=== PATIENT | female | born 1995 | race Caucasian/White ===

== ENCOUNTER 2018-02-21 11:11 | Observation (INO) | payer OTHER ==
[2018-02-21] MEDS ORDERED: MECLIZINE HCL 12.5 MG TAB ONE (11:53)
[2018-02-21 12:05] LABS: Absolute Lymphocytes (CBC) 1.8 K/uL (0.7-4.9); Absolute Monocytes 0.7 K/uL (0.1-1.3); Absolute Neutrophil 9.7 K/uL (1.8-8.0); Basophils % 0.2 % (0-1.3); Eosinophils % 0.2 % (0-4.4); Hematocrit 42.6 % (36.0-45.0); Lymphocytes % 14.6 % (15.3-44.8); MCH 30.4 pg (27.0-35.0); MCV 90.3 fL (80-100); MPV 8.9 fL (7.6-11.3); Monocytes % 5.6 % (3.3-12.3); RBC Red Blood Cell Count 4.72 M/uL (3.86-4.86)
[2018-02-21 12:30] LABS: ALT/SGPT 25 U/L (12-78); AST/SGOT 19 U/L (15-37); Alkaline Phosphatase 79 U/L (45-117); Amylase Level 49 U/L (25-115); BUN Blood Urea Nitrogen 9 mg/dL (7-18); Bicarbonate 27 mmol/L (21-32); Bilirubin Direct 0.1 mg/dL (0-0.2); Bilirubin Total 0.4 mg/dL (0.2-1.0); Glucose Level 87 mg/dL (74-106); Lipase 67 U/L (73-393); Potassium 3.8 mmol/L (3.5-5.1); Protein, Total 7.2 g/dL (6.4-8.2); Sodium Level 134 mmol/L (136-145)
[2018-02-21 13:15] LABS: Urine Bacteria >50 /HPF (<20); Urine Culture Reflex Order REFLEXED; Urine RBC <5 /HPF (NONE SEEN)
--- NOTE | 2018-02-21 14:07 | RAD REPORT ---
EXAM DESCRIPTION: CT - Head Brain Wo Cont - 02/21/2018 1:55 pm CLINICAL HISTORY: Dizziness COMPARISON: None. TECHNIQUE: Computed axial tomography of the head was obtained. IV contrast was not requested. All CT scans are performed using dose optimization technique as appropriate and may include automated exposure control or mA/KV adjustment according to patient size. FINDINGS: An intracranial bleed is not seen . The ventricles are normal in caliber. No extra-axial fluid collection is noted. Fluid within the sinuses/ mastoids is not seen. IMPRESSION: No acute intracranial abnormality is seen. If patient's symptoms persist MRI of the bra in would be recommended.
--- NOTE | 2018-02-21 14:16 | RAD REPORT ---
EXAM DESCRIPTION: CT - Abdomen Pelvis W Contrast - 02/21/2018 2:01 pm CLINICAL HISTORY: Abdominal pain/right lower quadrant pain with nausea COMPARISON: none. TECHNIQUE: Computed axial tomography of the abdomen pelvis was obtained. 100 cc Isovue-300 was admin istered intravenously. Oral contrast was not requested which limits evaluation of bowel. All CT scans are performed using dose optimization technique as appropriate and may include automated exposure control or mA/KV adjustment according to patient size. FINDINGS: The liver, spleen, pancreas, adrenal and kidneys appear unremarkable. There is no evidence of diverticulitis. A bi lobed mass is present within the left pelvis and mid pelvis anterior to the uterus. It contains fat, fluid and calcification. One lobe measures 5.5 centimeters. The other 4.5 centimeters. The appendix is inadequately evaluated IMPRESSION: Bilobed dermoid cyst within the pelvis. Inadequate evaluation of the appendix. If the patient has clinical symptoms to suggest appendicitis t hen a CT scan with oral contrast and opacification of the terminal ileum and cecum would be recommend ed
[2018-02-21 16:16] LABS: Urine Blood TRACE (NEG); Urine Glucose NEGATIVE (NEG); Urine Protein NEGATIVE (NEG); Urine Specific Gravity 1.015 (1.005-1.030)
[2018-02-21] MEDS ORDERED: MORPHINE 4 MG/ML SYR ONE (17:06)
[2018-02-21] MEDS ORDERED: ONDANSETRON 4 MG/2 ML VIAL ONE ×2 (17:06→20:39)
--- NOTE | 2018-02-21 18:20 | RAD REPORT ---
EXAM DESCRIPTION: CT - Abdomen Pelvis Wo Contrast - 02/21/2018 6:08 pm CLINICAL HISTORY: Abdominal pain. Right lower quadrant pain. COMPARISON: Abdomen Pelvis W Contrast dated 02/21/2018 TECHNIQUE: CT imaging of the abdomen and pelvis was performed without contrast. Solid organ and vasc ular assessment is limited due to lack of IV contrast. All CT scans are performed using dose optimization technique as appropriate and may include automated exposure control or mA/KV adjustment according to patient size. FINDINGS: The lower lung ramirez are clear. The liver, spleen, pancreas, adrenal glands and kidneys are within normal limits for a limited non-co ntrast examination. No bowel obstruction, free air, free fluid or abscess. The distal aspect of the appendix is thickene d, does not fill with oral contrast and is dilated to 12 mm. There is mild periappendiceal fat strand ing distally. This is compatible with early acute appendicitis. Evidence of bilateral ovarian dermoids again noted, unchanged since earlier study. IMPRESSION: Early acute appendicitis is suspected. A limited non-contrast examination was performed as detailed.
[2018-02-21] MEDS ORDERED: PIPER/TAZO/NS 3.375gm 3.375 GM/100 ML BAG ONE (18:37)
--- NOTE | 2018-02-21 18:37 | EDPHYS ---
Physician Documentation [facility] Name: Guerita Patel Age: 22 yrs Sex: Female : 1995 Arrival Date: 02/21/2018 Time: 11:16 Bed 15 Private MD: Mira Soto H ED Physician Kali Srivastava HPI: 02/21 11:46 This 22 yrs old Female presents to ER via Ambulatory with complaints of jmm Dizziness, Abdominal Pain. 11:46 The patient presents with dizziness. Onset: The symptoms/episode began/occurred jmm acutely, 1 day(s) ago. Modifying factors: The symptoms are alleviated by closing eyes, the symptoms are aggravated by nothing. Associated signs and symptoms: Pertinent positives: abdominal pain. This is a 89 year old female with no chronic medical conditions that presents to the ED with acute onset dizziness as she was laying in bed and shifting positions last night. Patient also complains of mild right lower abdominal pain. Patient states she has a history of ovarian cysts. Denies fever, denies diarrhea, denies vomiting. . 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 - Social history:: Smoking status: Patient/guardian denies using tobacco, Patient uses alcohol, but reports only rare drinking. - Ebola Screening: : No symptoms or risks identified at this time. ROS: 11:46 Constitutional: Negative for fever, chills, and weight loss, Cardiovascular: Negative jmm for chest pain, palpitations, and edema, Respiratory: Negative for shortness of breath, cough, wheezing, and pleuritic chest pain. 11:46 Back: Negative for injury and pain, : Negative for injury, bleeding, discharge, and swelling, MS/Extremity: Negative for injury and deformity, Skin: Negative for injury, rash, and discoloration. 11:46 Abdomen/GI: Positive for abdominal pain. 11:46 Neuro: Positive for dizziness. 11:46 All other systems are negative. Exam: 11:46 Constitutional: This is a well developed, well nourished patient who is awake, alert, jmm and in no acute distress. Head/Face: atraumatic. 11:46 Eyes: fatigable nystagmus noted, horizontal. 11:46 Neck: ROM/movement: is normal. 11:46 Chest/axilla: 11:46 Cardiovascular: Rate: normal, Rhythm: regular. 11:46 Respiratory: the patient does not display signs of respiratory distress, Respirations: normal, Breath sounds: are clear throughout. 11:46 Abdomen/GI: Inspection: abdomen appears normal, Bowel sounds: normal, Palpation: soft, mild abdominal tenderness, in the right lower quadrant, rebound tenderness, is not appreciated. 11:46 Back: ROM is normal. 11:46 Musculoskeletal/extremity: ROM: intact in all extremities. 11:46 Skin: Appearance: Color: normal in color. 11:46 Neuro: Orientation: is normal, Mentation: is normal, Memory: is normal, Cerebellar function: normal finger to nose testing. 11:46 Psych: Behavior/mood is pleasant, cooperative. Vital Signs: 11:29 BP 146 / 101; Pulse 99; Resp 18; Temp 97.5; Pulse Ox 97% ; Weight 83.91 kg; Height 5 sv ft. 5 in. (165.10 cm); Pain 2/10; 12:25 BP 116 / 74; Pulse 82; Resp 16; Pulse Ox 98% on R/A; em 14:30 BP 124 / 86; Pulse 88; Resp 16; Pulse Ox 97% on R/A; Pain 3/10; em 16:11 BP 135 / 91; Pulse 82; Resp 18; Pulse Ox 99% on R/A; em 16:57 BP 127 / 84; Pulse 87; Resp 16; Pulse Ox 98% on R/A; mh5 18:00 BP 134 / 82; Pulse 84; Resp 18; Pulse Ox 99% on R/A; Pain 0/10; em 18:50 BP 121 / 78; Pulse 81; Resp 16; Pulse Ox 97% on R/A; em 11:29 Body Mass Index 30.79 (83.91 kg, 165.10 cm) sv MDM: 11:44 Patient medically screened. [facility] 16:08 Data reviewed: vital signs, nurses notes, radiologic studies, ultrasound. bashir 18:17 Transition of care: After a detail discussion of the patient's case, care is [facility] transferred to Genaro MARTÍNEZ 02/21 11:46 Order name: Amylase, Serum; Complete Time: 12:49 [facility] 02/21 11:46 Order name: Basic Metabolic Panel; Complete Time: 12:49 [facility] 02/21 11:46 Order name: CBC with Diff; Complete Time: 12:25 [facility] 02/21 11:46 Order name: Creatinine for Radiology; Complete Time: 12:49 [facility] 02/21 11:46 Order name: Hepatic Function; Complete Time: 12:49 [facility] 02/21 11:46 Order name: Lipase; Complete Time: 12:49 [facility] 02/21 11:46 Order name: Urine Microscopic Only; Complete Time: 13:30 [facility] 02/21 13:08 Order name: Urine Dipstick--Ancillary (enter results); Complete Time: 16:31 02/21 13:08 Order name: Urine --Ancillary (enter results); Complete Time: 16:31 02/21 13:17 Order name: Urine Culture EDMS 02/21 13:30 Order name: CT Head Brain wo Cont; Complete Time: 14:15 [facility] 02/21 13:30 Order name: CT Abd/Pelvis - W/Contrast; Complete Time: 14:25 [facility] 02/21 11:46 Order name: IV Saline Lock; Complete Time: 12:17 [facility] 02/21 11:46 Order name: Labs collected and sent; Complete Time: 12:17 [facility] 02/21 11:46 Order name: Urine Dipstick-Ancillary (obtain specimen); Complete Time: 12:17 [facility] 02/21 18:06 Order name: Abdomen ; Complete Time: 18:26 EDMS Administered Medications: 11:55 Drug: Meclizine 50 mg Route: PO; iw 14:00 Follow up: Response: No adverse reaction; Marked relief of symptoms em 17:15 Drug: morphine 4 mg Route: IVP; Site: right antecubital; iw 17:37 Follow up: Response: No adverse reaction; Pain is decreased em 17:15 Drug: Zofran 4 mg Route: IVP; Site: right antecubital; iw 17:37 Follow up: Response: No adverse reaction em 18:50 Drug: Zosyn 3.375 grams Route: IVPB; Infused Over: 60 mins; Site: right antecubital; em 19:11 Follow up: Response: No adverse reaction; IV Status: Infusion continued upon admission em Disposition: 02/21/18 18:37 Hospitalization ordered by Marcos Kay for Observation. Preliminary diagnosis is Acute appendicitis. - Bed requested for Operating Room. - Status is Observation. em - Condition is Stable. - Problem is new. - Symptoms have improved. UTI on Admission? No Addendum: 02/24/2018 19:40 Co-signature as Attending Physician, Kali Srivastava MD. r n Signatures: Dispatcher [employer] EDPat Bethea, RN RN Gabriel Little PA PA jmm Munoz, Edgar, TUBE CLOSING MACHINE OPERATOR TUBE CLOSING MACHINE OPERATOR em Florina Barrientos, Kali Orzoco RN, MD MD rn Page, Corey, PA PA cp Corrections: (The following items were deleted from the chart) 02/21 15:40 15:37 Abdomen Pelvis W Con+CT.RAD.BRZ ordered. EDMS EDMS 15:42 15:40 Abdomen Wo Contrast ordered. EDMS EDMS 15:46 15:33 Abdomen W/ Con+CT.RAD.BRZ ordered. EDMS EDMS 18:06 15:42 Pelvis Wo Cont ordered. EDMS EDMS 19:11 18:37 Hospitalization Ordered by Marcos Kay MD for Observation. Preliminary diagnosis em is Acute appendicitis. Bed requested for Operating Room. Status is Observation. Condition is Stable. Problem is new. Symptoms have improved. UTI on Admission? No. cp
--- NOTE | 2018-02-21 18:37 | ER ---
Nurse's Notes [facility] Name: Guerita Patel Age: 22 yrs Sex: Female : 1995 Arrival Date: 02/21/2018 Time: 11:16 Bed 15 Private MD: Mira Soto H Diagnosis: Acute appendicitis Presentation: 02/21 11:22 Presenting complaint: Patient states: abd pain that started in the unbilical area and sv has moved to the RLQ, dizziness, diaphoresis, nausea x 1 day. Transition of care: patient was not received from another setting of care. Onset of symptoms was February 20, 2018. Risk Assessment: Do you want to hurt yourself or someone else? Patient reports no desire to harm self or others. Care prior to arrival: None. 11:22 Method Of Arrival: Ambulatory sv 11:22 Acuity: WILLIE 3 sv 12:25 Initial Sepsis Screen: Does the patient meet any 2 criteria? No. Patient's initial em sepsis screen is negative. Does the patient have a suspected source of infection? No. Patient's initial sepsis screen is negative. 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 - Social history:: Smoking status: Patient/guardian denies using tobacco, Patient uses alcohol, but reports only rare drinking. - Ebola Screening: : No symptoms or risks identified at this time. Screenin:26 Abuse screen: Denies threats or abuse. Nutritional screening: No deficits noted. em Tuberculosis screening: No symptoms or risk factors identified. Fall Risk None identified. Assessment: 11:48 General: Appears in no apparent distress. comfortable, Behavior is calm, cooperative. em Pain: Complains of pain in right lower quadrant. Neuro: Level of Consciousness is awake, alert, obeys commands, Oriented to person, place, time, situation. Neuro: Reports dizziness, Denies headache photophobia. Cardiovascular: Capillary refill < 3 seconds Patient's skin is warm and dry. Respiratory: Airway is patent Respiratory effort is even, unlabored, Respiratory pattern is regular, symmetrical. GI: Abdomen is flat, Bowel sounds present X 4 quads. Abd is soft X 4 quads Abdomen is tender to palpation in right lower quadrant. : Urine is cloudy. EENT: No signs and/or symptoms were reported regarding the EENT system. Derm: Skin is intact, Skin is pink, warm \T\ dry. Musculoskeletal: Range of motion: intact in all extremities. 12:00 Reassessment: Patient appears in no apparent distress at this time. I agree with above iw assessment by Solomon Trevino LVN. 12:40 Reassessment: Patient appears in no apparent distress at this time. Patient and/or em family updated on plan of care and expected duration. Pain level reassessed. Patient is alert, oriented x 3, equal unlabored respirations, skin warm/dry/pink. Patient states feeling better. 13:49 Reassessment: Patient appears in no apparent distress at this time. Patient and/or em family updated on plan of care and expected duration. Pain level reassessed. Patient is alert, oriented x 3, equal unlabored respirations, skin warm/dry/pink. dizziness has resolved, pain still in right lower quadrant Patient states symptoms have improved. 15:40 Reassessment: Patient and/or family updated on plan of care and expected duration. Pain em level reassessed. family at bedside, finished drinking PO contrast. 16:11 Reassessment: Patient appears in no apparent distress at this time. Patient and/or em family updated on plan of care and expected duration. Pain level reassessed. Patient is alert, oriented x 3, equal unlabored respirations, skin warm/dry/pink. awaiting for CT Patient states feeling better. 17:00 Reassessment: pt request pain medicine, CHRISTIE Rios notified, new orders received. em 17:38 Reassessment: Patient appears in no apparent distress at this time. Patient and/or em family updated on plan of care and expected duration. Pain level reassessed. Patient is alert, oriented x 3, equal unlabored respirations, skin warm/dry/pink. Patient denies pain at this time. 18:30 Reassessment: Patient appears in no apparent distress at this time. Patient and/or em family updated on plan of care and expected duration. Pain level reassessed. Patient is alert, oriented x 3, equal unlabored respirations, skin warm/dry/pink. pt will go to OR for procedure. Vital Signs: 11:29 BP 146 / 101; Pulse 99; Resp 18; Temp 97.5; Pulse Ox 97% ; Weight 83.91 kg; Height 5 sv ft. 5 in. (165.10 cm); Pain 2/10; 12:25 BP 116 / 74; Pulse 82; Resp 16; Pulse Ox 98% on R/A; em 14:30 BP 124 / 86; Pulse 88; Resp 16; Pulse Ox 97% on R/A; Pain 3/10; em 16:11 BP 135 / 91; Pulse 82; Resp 18; Pulse Ox 99% on R/A; em 16:57 BP 127 / 84; Pulse 87; Resp 16; Pulse Ox 98% on R/A; mh5 18:00 BP 134 / 82; Pulse 84; Resp 18; Pulse Ox 99% on R/A; Pain 0/10; em 18:50 BP 121 / 78; Pulse 81; Resp 16; Pulse Ox 97% on R/A; em 11:29 Body Mass Index 30.79 (83.91 kg, 165.10 cm) sv ED Course: 11:16 Patient arrived in ED. mr 11:16 Mira Soto DO is Private Physician. mr 11:22 Gabriel Foster [facility] is [facility]. m 11:22 Kali Srivastava MD is Attending Physician. [facility] 11:28 Triage completed. sv 11:29 Arm band placed on right wrist. Patient placed in an exam room, on pulse oximetry. sv 11:47 Solomon Trevino LVN is Primary Nurse. em 11:54 Initial lab(s) drawn, by ok, sent to lab. Inserted saline lock: 20 gauge in right iw antecubital area, using aseptic technique. Blood collected. 12:25 Patient has correct armband on for positive identification. Bed in low position. Call em light in reach. Side rails up X2. 12:26 No provider procedures requiring assistance completed. em 13:55 CT Head Brain wo Cont In Process Unspecified. EDMS 14:00 CT Abd/Pelvis - W/Contrast In Process Unspecified. EDMS 14:04 CT completed. Patient tolerated procedure well. Patient moved to CT. Patient moved back il from CT. 18:09 Abdomen In Process Unspecified. EDMS 18:12 PHCP role handed off by Gabriel Foster PA cp 18:12 Genaro Sherman PA is PHCP. cp 18:36 Marcos Kay MD is Hospitalizing Provider. cp 19:09 Patient admitted, IV remains in place. em Administered Medications: 11:55 Drug: Meclizine 50 mg Route: PO; iw 14:00 Follow up: Response: No adverse reaction; Marked relief of symptoms em 17:15 Drug: morphine 4 mg Route: IVP; Site: right antecubital; iw 17:37 Follow up: Response: No adverse reaction; Pain is decreased em 17:15 Drug: Zofran 4 mg Route: IVP; Site: right antecubital; iw 17:37 Follow up: Response: No adverse reaction em 18:50 Drug: Zosyn 3.375 grams Route: IVPB; Infused Over: 60 mins; Site: right antecubital; em 19:11 Follow up: Response: No adverse reaction; IV Status: Infusion continued upon admission em Outcome: 18:37 Decision to Hospitalize by Provider. cp 19:09 Admitted to OR accompanied by nurse, via stretcher, with chart. em 19:09 Condition: good 19:09 Instructed on the need for admit, Demonstrated understanding of instructions. 19:11 Patient left the ED. em Signatures: Dispatcher [employer] Pat Bauer, RN JAMES Gabriel Foster PA PA jmm Rivera, Maria mr Trevino, Solomon, SOMMELIER SOMMELIER em Florina Barrientos RN RN iw Page, Corey, PA PA cp Jordan, Nathan nj Martinez, Maria [facility]
[2018-02-21] MEDS ORDERED: BUPIVACA 0.25%/EPI 0.0005%/PF 30 ML VIAL ONE (19:15)
[2018-02-21] MEDS ORDERED: Ringers Lactate 1,000 ML IV ONE (19:15)
[2018-02-21] MEDS ORDERED: LIDOCAINE 2% MPF 5 ML VIAL ONE (19:34)
[2018-02-21] MEDS ORDERED: FENTANYL CITR 100 MCG/2 ML ONE (19:34)
[2018-02-21] MEDS ORDERED: PROPOFOL 200 MG/20 ML VIAL IV ONE (19:34)
[2018-02-21] MEDS ORDERED: ROCURONIUM 50 MG/5 ML VIAL IV ONE (19:34)
[2018-02-21] MEDS ORDERED: LANO/MINERAL OIL/PETRO 3.5 GM ONE (19:52)
[2018-02-21] MEDS ORDERED: DEXAMETHASONE 10 MG/ML VIAL ONE (19:59)
[2018-02-21] MEDS ORDERED: KETOROLAC 30 MG/ML INJ ONE (19:59)
[2018-02-21] MEDS ORDERED: ONDANSETRON HCL 40 MG/20 ML VIAL ONE (19:59)
[2018-02-21] MEDS ORDERED: NEOSTIGMINE 1 MG/ML -5 ML SYRINGE ONE (20:05)
[2018-02-21] MEDS ORDERED: GLYCOPYRROLATE 0.2 MG/ML SYR ONE (20:05)
--- NOTE | 2018-02-21 20:22 | P.OP ---
Preoperative diagnosis: Acute Appendicitis Postoperative diagnosis: Acute Non Perforated Appendicitis Primary procedure: Laparoscopic Appendectomy Anesthesia: GETA + Local Estimated blood loss: <5cc Specimen: vermiform appendix Findings: acute non-perforated appendicitis Complications: None Transferred to: Recovery Room Condition: Good
[2018-02-21] MEDS: MEPERIDINE HCL 25 MG/0.5 ML ONE ×2 (20:40→20:53)
[2018-02-21] MEDS: HYDROCODONE/APAP 5/325 MG TAB ONE ×2 (21:13→21:15)
--- NOTE | 2018-02-22 04:03 | OP ---
Date of Procedure: 02/21/2018 Surgeon: Marcos Kay MD, Brief History Of Present Illness: The patient is a 22-year-old female who came in with signs and sym ptoms consistent with acute non-perforated appendicitis. Preoperative Diagnosis: Acute appendicitis. Postoperative Diagnosis: Acute nonperforated appendicitis. Procedure Performed: Laparoscopic appendectomy. Anesthesia: General endotracheal plus local with 0.25% Marcaine. Estimated Blood Loss: Less than 5 cc. Specimen: Vermiform appendix. Findings: Acute nonperforated appendicitis. Also, 2 large dermoid cysts were noted on bilateral ova jay. Complications: None. Transferred to recovery room in good condition. Procedure In Detail: After informed consent was obtained, the patient was brought to the operating r oom and prepped and draped in the usual sterile fashion after adequate anesthesia was achieved, an in fraumbilical area was anesthetized with 0.25% Marcaine and sharply incised. A 5-mm trocar was introd uced into the abdomen without evidence of complication. Insufflation was obtained to 15 mmHg at this time. After insufflation was obtained, the area was inspected. There was no injury to vital struct ure upon entry into the abdomen. Additional trocar site was chosen in the suprapubic region. This w as similarly anesthetized and sharply incised and a 5-mm trocar was introduced in the abdomen without any complication. The umbilical trocar was then up-sized to a 12 mm under direct visualization with out evidence of complication. Additional trocar assessment shows in the left lower quadrant is simil madhuri anesthetized and sharply incised. A 5-mm trocar was introduced into the abdomen without any com plications. The patient was then positioned the head down, right side up position. Ratcheted graspe r was used to grasp the patient's appendix. After localizing, it was found to be acute nonperforated appendicitis, particularly at the tip. This was grasped and elevated and a mesoappendiceal window w as created with the [place] retractor without evidence of complication. An Endo-ANAM 35 blue load wa s then fired across the base of the appendix with good approximation of the tissues. There was no le akage from the staple line at this time. The LigaSure device was then used to take the mesoappendix down with good hemostasis without any additional hemostatic maneuvers after the ligation. The append ix was then placed in EndoCatch bag and removed the umbilical trocar with re-insufflation was obtaine d at this time and the area was inspected. Proper hemostasis was achieved without any additional hem ostatic maneuvers. Staple line was inspected, found to be in good approximation of tissues. The are a was copiously irrigated multiple times until completely clear. Attention was then turned to the pa tient's pelvis. This area was copiously irrigated multiple times and suctioned dry. Two large dermo id cysts were noted on bilateral ovaries. Photos were taken of both of these structures. They were found to be quite large, consistent with the CT findings preoperatively. They did not have any omino us features grossly. The patient was then positioned in neutral position. The umbilical trocar was removed and the umbilical trocar site was closed using a Neftaly-Edison suture passer with an 0 Vicr yl interrupted fashion with good approximation of tissues. The abdomen was completely desufflated un junaid direct visualization without evidence of complication. All remaining trocars were removed. All skin incisions were copiously irrigated closed with a 4-0 Monocryl in a running fashion. Dermabond w as placed over top. The patient tolerated the procedure and complication and transferred to PACU in good condition. All counts were correct at the end of the case. HARPER/NESTOR Voice ID: [id number] Report ID: [id number]
--- NOTE | 2018-02-22 04:24 | HP ---
Date of Admission: 02/21/2018 Brief History Of Present Illness: The patient is a 22-year-old female, who presents with a pproximately one-half day history of periumbilical abdominal pain beginning yesterday evening. She s tates that the pain got progressively worse, sharp and was associated with nausea. No vomiting. She has a history of constipation. No diarrhea. She had some subjective fever. No chills. She states the pain got worse and worse and as such she took a Tylenol No. 3, which she was from another person 's prescription with minimal pain improvement. The pain had got progressively worse and as such, she came to the emergency room. She has never had similar episodes before in the past. There was no ra diation of the pain. No other aggravating or alleviating factors. No sick contacts. No recent kelly el. No new food exposures. Past Medical History: Significant for asthma in the past. Past Surgical History: Negative. Allergies: NO KNOWN DRUG ALLERGIES. Medications: None. Court Monitor History: She took Plan B approximately 1-1/2 weeks ago. Otherwise, no other significant EVENTS INTERN his tory. Family History: Reviewed and noncontributory. Social History: She denies smoking, alcohol, or recreational drug use. 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 Review of Systems: A 10-point review of systems other than HPI, she denies. Neurologic: She had some vertigo recently, but that has resolved. Physical Examination: General: At the time of my examination, she is awake, alert, oriented. Psychiatric: She is appropriate conversive. HEENT: Normocephalic. Sclerae are anicteric. Mucous membranes are moist. Oropharynx is clear. Neck: Supple. No JVD. Chest: Normal to expansion and excursion. Cardiovascular: Regular rate and rhythm. Pulmonary: Clear to auscultation bilaterally. Abdomen: Soft with positive periumbilical right lower quadrant tenderness to palpation at McBurney's point at the greatest point of tenderness. Moderate voluntary guarding. Mild rebound. Very small umbilical hernia palpated on deep palpation. Extremities: No clubbing, cyanosis, or edema. Skin: Warm and dry. Laboratory Data: Reveals a white count 12.3, hemoglobin is 14.3, hematocrit of 42.6, platelet count 267. Her neutrophils are 79.4%. Sodium is 134, potassium 3.8, chloride 105, carbon dioxide 27, BUN 9, creatinine 0.6, glucose is 87, total bilirubin 0.4, AST 19, ALT 25, alk phos 79, lipase is 67. UA showed trace blood, 1+ leukocyte esterase, 10-20 white blood cells and greater than 50 bacteria. Th ere were 5-10 squamous cells. Her urine test was negative. She had imaging performed which included abdomen and pelvis CT which officially read as bilobar dermo id cyst within the pelvis, inadequate evaluation of the appendix as she had a noncontrast CT. She capone d a CT of the head as well, which officially read as no acute intracranial abnormality. She had a fo llowup CT of abdomen and pelvis with contrast, which showed early acute appendicitis suspected, evide nce of bilateral ovarian dermoid cysts again noted, unchanged since earlier study. Assessment And Plan: This is a 22-year-old female who presents with signs and symptoms of early acut e appendicitis. 1.IV fluid hydration. 2.Antibiotic coverage. 3.I have explained the risks, benefits, and alternatives of laparoscopic possible open appendectomy including but not limited to bleeding, infection, damage to the surrounding tissue, need for further operating procedures. The patient agrees to proceed as indicated. 4.I have explained the patient needs to follow up with a welder assembler regarding her cystic adnexal structures, and she has agreed postoperatively to do so in the presence of her mother as well. HARPER/NESTOR Voice ID: [id number]
== END 2018-02-21 21:49 | disposition home or self-care (01) ==
LOC: ER 11:11 → ERHOLD 19:31 → 2ND 19:40
PROVIDERS: ADMIT Surgery; ATTEND Surgery
PROC: 0DTJ4ZZ Resection of Appendix, Percutaneous Endoscopic Approach (ICD-10-PCS; principal; 2018-02-21 19:00)
DX: K35.80 Unspecified acute appendicitis (principal); D27.1 Benign neoplasm of left ovary; D27.0 Benign neoplasm of right ovary
CPT/HCPCS: 36415; 70450; 74176; 74177; 80048; 80076; 81003; 81015; 81025; 82150; 83690; 85025; 87077; 87086; 87088; 87186; 88304; 96365; 96375; 99285; J1100; J2175; J2405; J2543; J2710; J3010; Q9967

== ENCOUNTER 2018-05-28 06:30 | Day surgery (SDC) | payer OTHER ==
[2018-05-26 11:55] LABS: Absolute Lymphocytes (CBC) 2.5 K/uL (0.7-4.9); Absolute Monocytes 0.6 K/uL (0.1-1.3); Basophils % 0.6 % (0-1.3); Eosinophils % 0.9 % (0-4.4); Hematocrit 43.4 % (36.0-45.0); Lymphocytes % 34.9 % (15.3-44.8); MCH 31.6 pg (27.0-35.0); MCV 90.9 fL (80-100); MPV 9.1 fL (7.6-11.3); Monocytes % 8.7 % (3.3-12.3); RBC Red Blood Cell Count 4.78 M/uL (3.86-4.86)
[2018-05-26 12:01] LABS: Urine Appearance CLOUDY; Urine Bilirubin NEGATIVE (NEG); Urine Blood NEGATIVE (NEG); Urine Color YELLOW; Urine Glucose NEGATIVE (NEG); Urine Protein NEGATIVE (NEG); Urine Specific Gravity 1.025 (1.005-1.030); Urine Urobilinogen 0.2 mg/dL (0.2-1.0)
[2018-05-26 12:24] LABS: Urine Microscopic Reflex ORDER UMIC
[2018-05-26 12:34] LABS: Urine Bacteria 20-50 /HPF (<20); Urine Culture Reflex Order REFLEXED; Urine Mucus 2+ /HPF (NONE SEEN); Urine RBC <5 /HPF (NONE SEEN)
[2018-05-28] MEDS ORDERED: SCOPOLAMINE HYDROBROMIDE PATCH TD ONE (07:00)
[2018-05-28] MEDS ORDERED: Ringers Lactate 1,000 ML IV ONE ×2 (07:00→09:57)
[2018-05-28] MEDS ORDERED: PROPOFOL 200 MG/20 ML VIAL IV ONE (07:01)
[2018-05-28] MEDS ORDERED: LIDOCAINE 2% MPF 5 ML VIAL ONE (07:01)
[2018-05-28] MEDS ORDERED: ROCURONIUM 50 MG/5 ML VIAL IV ONE (07:01)
[2018-05-28] MEDS ORDERED: MIDAZOLAM HCL 2 MG/2 ML INJ ONE (07:01)
[2018-05-28] MEDS ORDERED: FENTANYL CITR 250 MCG/5 ML ONE (07:01)
[2018-05-28] MEDS ORDERED: ONDANSETRON HCL 40 MG/20 ML VIAL ONE (07:03)
[2018-05-28 07:47] LABS: Specific Gravity 1.025 (1.005-1.030)
[2018-05-28] MEDS ORDERED: KETOROLAC 30 MG/ML INJ ONE (10:03)
[2018-05-28] MEDS: MEPERIDINE HCL 50 MG/ML AMP ONE ×2 (11:05→11:11)
[2018-05-28] MEDS ORDERED: METOCLOPRAMIDE 10 MG/2mL INJ ONE (11:36)
== END 2018-05-28 12:30 | disposition home or self-care (01) ==
LOC: OR 06:30
PROVIDERS: ATTEND Obstetrics & Gynecology
PROC: 0UB24ZZ Excision of Bilateral Ovaries, Percutaneous Endoscopic Approach (ICD-10-PCS; principal; 2018-05-28 07:30)
DX: D27.1 Benign neoplasm of left ovary (principal); D27.0 Benign neoplasm of right ovary
CPT/HCPCS: 36415; 81003; 81015; 81025; 85025; 86850; 86900; 86901; 87077; 87086; 87088; 87186; 88108; 88305; J2175; J2250; J2405; J2765